=== PATIENT | female | born 1980 | race African-American/Black ===

== ENCOUNTER 2017-10-31 11:44 | Emergency (ER) | payer OTHER ==
[~2017-10-31] VITALS: Ht 157.5 cm; Wt 63.5 kg
[2017-10-31 12:17] VITALS: BP 132/88
[2017-10-31] MEDS ORDERED: PROPYLTHIOURACI50 M2 PO (12:22)
[2017-10-31] MEDS ORDERED: CORTISPORIN EAR10 ML LEFT EAR (12:22)
[2017-10-31] MEDS ORDERED: ATENOLOL50 MG ORAL (12:22)
--- NOTE | 2017-10-31 12:26 | Emergency Room Report ---
History of Present Illness General Chief Complaint: General Complaint Source: EMS Present Illness HPI 36 y/o female c/o multiple complaints. States she has left ear pain and been having bodyaches and chills. States that she is taking ibuprofen and benadryl with improvement of symptoms. Has no other physical complaints. Denies any current n/v/f/c/d, abd pain, back pain, neck pain, photophobia, phonophobia, CP , SOB or headache. Patient is also requesting refill of her PTU 25mg and Atenolol 50mg once daily for Hyperthyroidism that is well controlled. States she takes with good compliance w/o AE and with good control of sxs. Allergies: Coded Allergies: No Known Allergies (Unverified , 10/31/17) Patient History Past Medical History: see triage record Past Surgical History: none Pertinent Family History: none Now: No Immunizations: UTD Reviewed Nursing Documentation: PMH: Agreed; PSxH: Agreed Nursing Documentation-PMH Past Medical History: No History, Except For Hx Cardiac Problems: No - HYPERTHYROIDISIM Review of Systems All Other Systems: negative except mentioned in HPI Physical Exam Vital Signs Date Time Temp Pulse Resp B/P (MAP) Pulse Ox O2 Delivery O2 Flow Rate FiO2 10/31/17 12:07 98.2 101 20 132/88 99 Room Air 98.2 Sp02 EP Interpretation: reviewed, normal General Appearance: no apparent distress, alert, GCS 15, non-toxic Head: normocephalic, atraumatic Eyes: bilateral eye normal inspection, bilateral eye PERRL ENT: hearing grossly normal, normal pharynx, no angioedema, normal voice, uvula midline, nasal congestion, other - TMs pearly gonzalez with normal light reflex. Left EAC is erythematous and swollen. Neck: full range of motion, supple/symm/no masses Respiratory: chest non-tender, lungs clear, normal breath sounds, speaking full sentences Cardiovascular #1: regular rate, rhythm, no edema Musculoskeletal: back normal, gait/station normal, normal range of motion Neurologic: alert, oriented x3, responsive, sensory intact, speech normal Psychiatric: judgement/insight normal, memory normal, mood/affect normal, no suicidal/homicidal ideation Skin: normal color, no rash, warm/dry, well hydrated Medical Decision Making PA Attestation Dr. Sauceda my supervising physician with whom patient management has been discussed with. Diagnostic Impression: Primary Impression: Left otitis externa Additional Impressions: Viral URI Encounter for medication refill ER Course Pt. presents to the ED c/o of Ear Pain and flu-like sxs Ddx considered but are not limited to mastoiditis, bronchitis, pneumonia, viral upper respiratory tract infection, sinus pressure, AOM, AOE, headache, TMJ, Meningitis Vital signs: are WNL, pt. is afebrile H&PE are most consistent with viral upper respiratory tract infection with AOE ORDERS: none required at this time, the diagnosis is clinical ED INTERVENTIONS: None required at this time. DISCHARGE: At this time pt. is stable for d/c to home. Will provide printed patient care instructions, and any necessary prescriptions. Care plan and follow up instructions have been discussed with the patient prior to discharge. Last Vital Signs Date Time Temp Pulse Resp B/P (MAP) Pulse Ox O2 Delivery O2 Flow Rate FiO2 10/31/17 12:07 98.2 101 20 132/88 99 Room Air 98.2 Status: unchanged Disposition: HOME, SELF-CARE Condition: Stable Scripts Atenolol* (TENORMIN*) 50 Mg Tablet 50 MG ORAL DAILY for 30 Days, #30 TAB Prov: GRAYSON PITTSM P.A. 10/31/17 Propylthiouracil (PROPYLTHIOURACIL) 50 Mg Tablet 25 MG PO DAILY for 30 Days, #25 TAB Prov: GRAYSON PITTSM P.A. 10/31/17 Neomycin/Polymyxin B Sulf/Hc* (CORTISPORIN EAR SOLUTION*) 10 Ml Solution 4 DROP LEFT EAR QID, #10 ML 0 Refills Prov: UDAY PITTS. 10/31/17 Patient Instructions: Otitis Externa Additional Instructions: Take medication as directed. Return if symptoms change and worsen. Follow up with your PCP within the next 2-3 days for reevaluation. UDAY PITTS October 31, 2017 12:26
[2017-10-31 12:32] VITALS: BP 132/88
== END 2017-10-31 12:32 | disposition home or self-care (01) ==
LOC: EMR 12:23
DX: H60.92 Unspecified otitis externa, left ear (principal); J06.9 Acute upper respiratory infection, unspecified; B34.9 Viral infection, unspecified; Z76.0 Encounter for issue of repeat prescription; E05.90 Thyrotoxicosis, unspecified without thyrotoxic crisis or storm
CPT/HCPCS: 99284

== ENCOUNTER 2017-12-30 13:26 | Emergency (ER) | payer OTHER ==
[~2017-12-30] VITALS: Ht 157.5 cm; Wt 65.8 kg
[~2017-12-30 13:26] MED LIST: ATENOLOL50 MG ORAL; CORTISPORIN EAR10 ML LEFT EAR; PROPYLTHIOURACI50 M2 PO
[2017-12-30 14:00] VITALS: BP 189/113
[2017-12-30] MEDS ORDERED: Tetracaine 0.5% Opth 4ml Soln LEFT EYE ONE (14:00)
[2017-12-30] MEDS ORDERED: Fluorescein Strips LEFT EYE ONE (14:00)
[2017-12-30] MEDS ORDERED: Tetanus/Diptheria/Pertussis Vaccine 0.5ml Syr IM ONE (15:15)
--- NOTE | 2017-12-30 15:15 | Emergency Room Report ---
History of Present Illness General Chief Complaint: Eye Problems Source: Patient Present Illness HPI 37 YO Female presents to the ED c/o : Left eye pain, redness, scratching sensation and increased tearing x 2 day(s). Pt. reports accidentally poking her eye with her long artificial nails yesterday with acute onset of symptoms. reports some photophobia. denies contact lens use. Denies Loss of vision, Floaters, Flashing lights, or Diplopia/blurry vision. not sure about tetanus status more than 7 yrs ago. Allergies: Coded Allergies: No Known Allergies (Unverified , 10/31/17) Patient History Past Medical History: see triage record Past Surgical History: none Pertinent Family History: none Last Menstrual Period: 12/11/17 Now: No - TWINS : 3 Para: 3 Reviewed Nursing Documentation: PMH: Agreed; PSxH: Agreed Nursing Documentation-PMH Past Medical History: No History, Except For Hx Cardiac Problems: No - HYPERTHYROIDISIM Hx Hypertension: Yes Physical Exam Vital Signs Date Time Temp Pulse Resp B/P (MAP) Pulse Ox O2 Delivery O2 Flow Rate FiO2 12/30/17 13:42 98.1 84 18 189/113 97 Room Air 98.1 Sp02 EP Interpretation: reviewed, normal General Appearance: no apparent distress, alert, GCS 15, non-toxic Head: normocephalic, atraumatic Eyes: left eye fluoroscene uptake; bilateral eye normal inspection, bilateral eye PERRL, bilateral eye EOMI, bilateral eye visual acuity - 20/50 bilateral 20/ 40 left eye, bilateral eye other - Increase fluorescein uptake in a linear fashion in the 12 o clock position of the Left eye over the iris, there is no involvement of the pupil. Negative Jabier sign. ENT: hearing grossly normal, normal voice Neck: full range of motion Respiratory: chest non-tender, lungs clear, normal breath sounds, speaking full sentences Cardiovascular #1: regular rate, rhythm, no edema Gastrointestinal: normal bowel sounds, non tender, soft Rectal: deferred Genitourinary: normal inspection Musculoskeletal: back normal, gait/station normal, normal range of motion, non- tender Neurologic: alert, oriented x3, responsive, motor strength/tone normal, sensory intact, speech normal, grossly normal Psychiatric: judgement/insight normal Skin: normal color, no rash, warm/dry, well hydrated Lymphatic: no adenopathy Medical Decision Making PA Attestation Dr. silvestre is my supervising Physician whom patient management has been discussed with. Diagnostic Impression: Primary Impression: Corneal abrasion, left Qualified Codes: S05.02XA - Injury of conjunctiva and corneal abrasion without foreign body, left eye, initial encounter Additional Impression: Medication refill ER Course 37 YO Female presents to the ED c/o : Left eye pain, redness, scratching sensation and increased tearing x 2 day(s). Pt. reports accidentally poking her eye with her long artificial nails yesterday with acute onset of symptoms. reports some photophobia. denies contact lens use. Denies Loss of vision, Floaters, Flashing lights, or Diplopia/blurry vision. not sure about tetanus status more than 7 yrs ago. Ddx considered but are not limited to: corneal abrasion, acute glaucoma, globe rupture, FB, Corneal Ulcer, conjunctivitis. Iridis Vital signs: are WNL, pt. is afebrile H&PE are most consistent with: corneal abrasion ORDERS: -Tetracaine and Fluorescein Stain of the Left eye-Increase fluorescein uptake in a linear fashion in the 12 o clock position of the Left eye over the iris, there is no involvement of the pupil. Negative Jabier sign. Pt. had positive relief of pain with tetracaine drops. there was negative evidence of Fb, deep ulcer, or rupture. ED INTERVENTIONS: -Tdap IM Patient also requests refill for her hyperthyroid medication as well as blood pressure medication. DISCHARGE: At this time pt. is stable for d/c to home. Will provide printed patient care instructions, and any necessary prescriptions. Care plan and follow up instructions have been discussed with the patient prior to discharge. . Last Vital Signs Date Time Temp Pulse Resp B/P (MAP) Pulse Ox O2 Delivery O2 Flow Rate FiO2 12/30/17 14:00 98.1 84 18 189/113 97 Room Air 98.1 Disposition: HOME, SELF-CARE Condition: Stable Scripts Atenolol* (TENORMIN*) 50 Mg Tablet 50 MG ORAL DAILY, #30 TAB Prov: Carolynn Palmer 12/30/17 Propylthiouracil (Propylthiouracil) 50 Mg Tablet 25 MG PO DAILY, #30 TAB Prov: Carolynn Palmer 12/30/17 Acetaminophen* (TYLENOL EXTRA STRENGTH*) 500 Mg Tablet 500 MG ORAL Q6H PRN for Mild Pain/Temp > 100.5, #20 TAB 0 Refills Prov: Carolynn Palmer 12/30/17 Ciprofloxacin (Ciprofloxacin HCl) 2.5 Ml Drops 2 DROP LEFT EYE Q6H for 5 Days, #2.5 ML Prov: Carolynn Palmer 12/30/17 Referrals: Richar GÓMEZ,REFERRING (PCP) Patient Instructions: Corneal Abrasion Additional Instructions: Take medications as directed. Follow up with a Culinary Manager in 3 days, even if your symptoms have resolved. --Please review list of primary care clinics, if you do not already have a primary care provider Return sooner to ED if new symptoms occur, or current symptoms become worse. - Please note that this Emergency Department Report was dictated using [employer] technology software, occasionally this can lead to erroneous entry secondary to interpretation by the dictation equipment. Carolynn Palmer Dec 30, 2017 15:15
[2017-12-30] MEDS ORDERED: CILOXAN 0.3% O1 DROP LEFT EYE (15:18)
[2017-12-30] MEDS ORDERED: TYLENOL EXTRA500 MG ORAL (15:18)
[2017-12-30 15:47] VITALS: BP 169/92
[2017-12-30] MEDS ORDERED: ATENOLOL50 MG ORAL (15:54)
[2017-12-30] MEDS ORDERED: PROPYLTHIOURACI50 MG PO (15:54)
== END 2017-12-30 15:47 | disposition home or self-care (01) ==
LOC: EMR 14:45
DX: S05.02XA Injury of conjunctiva and corneal abrasion without foreign body, left eye, initial encounter (principal); W22.8XXA Striking against or struck by other objects, initial encounter; Y92.9 Unspecified place or not applicable; I10 Essential (primary) hypertension; E05.90 Thyrotoxicosis, unspecified without thyrotoxic crisis or storm; Z76.0 Encounter for issue of repeat prescription
CPT/HCPCS: 99284

== ENCOUNTER 2019-05-27 16:54 | Emergency (ER) | payer OTHER ==
[~2019-05-27] VITALS: Ht 157.5 cm; Wt 66.7 kg
[~2019-05-27 16:54] MED LIST changes: +CILOXAN 0.3% O1 DROP LEFT EYE; +PROPYLTHIOURACI50 MG PO; +TYLENOL EXTRA500 MG ORAL
[2019-05-27 17:05] VITALS: BP 150/89
--- NOTE | 2019-05-27 17:05 | NUR ---
ED Nurse Note: Pt ambulated to the ED with the c/o of laceration on the right hand. Upon assessment pt verbalized "I was trying to cover my face while a candle just got broken." Placed on bed.
--- NOTE | 2019-05-27 17:21 | NUR ---
ED Nurse Note: X-ray done.
[2019-05-27] MEDS ORDERED: Tetanus/Diptheria/Pertussis IM ONE (17:30)
--- NOTE | 2019-05-27 17:30 | NUR ---
ED Nurse Note: TDAP given at left deltoid.
--- NOTE | 2019-05-27 18:06 | Emergency Room Report ---
History of Present Illness General Chief Complaint: Laceration Source: Patient Present Illness HPI 38-year-old female with history of hyperthyroidism and hypertension currently controlled here due to a laceration on right wrist. Patient reports that she was picking up a candle from the top shelf in the bathroom as a candle fell on her right hand and the glass portion of the candle broke and gave her a cut the right palmar side of wrist. Patient has full range of motion, no motor or sensory deficits noted. Patient is requesting a tetanus shot as she reports that she is not up-to-date. Denies all other injuries, chest pain, shortness of breath, palpitation, no other associated symptoms. No ecchymosis noted at site of injury. Allergies: Coded Allergies: No Known Allergies (Unverified , 10/31/17) Patient History Past Medical History: see triage record Past Surgical History: unable to obtain Pertinent Family History: none Now: No Immunizations: other - Tdap given today Reviewed Nursing Documentation: PMH: Agreed; PSxH: Agreed Nursing Documentation-PMH Past Medical History: No History, Except For Hx Cardiac Problems: No - HYPERTHYROIDISIM Hx Hypertension: Yes Review of Systems All Other Systems: negative except mentioned in HPI Physical Exam Vital Signs Date Time Temp Pulse Resp B/P (MAP) Pulse Ox O2 Delivery O2 Flow Rate FiO2 05/27/19 17:03 98.4 100 16 154/90 (111) 99 Room Air Sp02 EP Interpretation: reviewed, normal General Appearance: no apparent distress, alert, GCS 15, non-toxic Head: normocephalic, atraumatic Eyes: bilateral eye normal inspection, bilateral eye PERRL ENT: hearing grossly normal, normal pharynx, no angioedema, normal voice Neck: full range of motion, supple/symm/no masses Respiratory: chest non-tender, lungs clear, normal breath sounds, no rhonchi, no wheezing, speaking full sentences Cardiovascular #1: regular rate, rhythm, no edema, no murmur, normal capillary refill Cardiovascular #2: 2+ radial (R), 2+ radial (L) Gastrointestinal: normal bowel sounds, non tender, soft, non-distended, no guarding, no rebound Rectal: deferred Genitourinary: normal inspection, no CVA tenderness Musculoskeletal: back normal, non-tender, other - laceration right wrist Neurologic: alert, motor strength/tone normal, oriented x3, sensory intact, responsive, speech normal Psychiatric: judgement/insight normal, memory normal, mood/affect normal, no suicidal/homicidal ideation Skin: laceration - superficial palmar side of right wrist Lymphatic: no adenopathy Procedures Laceration/Wound Repair Laceration/Wound Repair : Consent: Verbal Wound Location: upper extremity - wrist Wound's Depth, Shape: superficial Wound Length (cm): 1 Wound Explored: clean Irrigated w/ Saline (ccs): 10 Betadine Prep?: Yes Anesthesia: Lidocaine w/ Epi Volume Anesthetic (ccs): 5 Wound Repaired With: sutures Suture Size/Type: 5:0 Number of Sutures: 5 Layer Closure?: Yes Sterile Dressing Applied?: Yes Splint Applied?: No Sling Applied?: No Patient Tolerated: Well Complications: None Medical Decision Making PA Attestation All my diagnosis and treatment plans were reviewed ad discussed with my supervising physician Dr. Liang Diagnostic Impression: Primary Impression: Laceration of wrist Additional Impression: Contusion, hand ER Course 38-year-old female with history of hyperthyroidism and hypertension currently controlled here due to a laceration on right wrist. Patient reports that she was picking up a candle from the top shelf in the bathroom as a candle fell on her right hand and the glass portion of the candle broke and gave her a cut the right palmar side of wrist. Patient has full range of motion, no motor or sensory deficits noted. Patient is requesting a tetanus shot as she reports that she is not up-to-date. Denies all other injuries, chest pain, shortness of breath, palpitation, no other associated symptoms. No ecchymosis noted at site of injury. Ddx considered but are not limited to : Superficial laceration, deep laceration , tendon involvement with laceration, laceration with foreign body, and contusion versus fracture versus sprain Vital signs: are WNL, pt. is afebrile H&PE are most consistent with: Superficial laceration of right wrist, contusion of right hand ORDERS: Right wrist x-ray, Bactroban, ibuprofen ED INTERVENTIONS: Tdap, wound closure DISCHARGE: At this time pt. is stable for d/c to home. Will provide printed patient care instructions, and any necessary prescriptions. Care plan and follow up instructions have been discussed with the patient prior to discharge. Sutures to be removed in 7 to 10 days, followed up, worsening symptoms return to the emergency room Other X-Ray Diagnostic Results Other X-Ray Diagnostic Results : X-Ray ordered: wrist # of Views/Limited Vs Complete: 3 View Indication: Pain EP Interpretation: Yes PA Xray: Interpretation reviewed, by supervising MD, and agrees with findings. Interpretation: no dislocation, no soft tissue swelling, no fractures, other - no fb Impression: No acute disease Electronically Signed by: Evin THOMAS Scribe Text I evaluated the Xray with my supervising physician Dr. Liang and agreed on no fracture Last Vital Signs Date Time Temp Pulse Resp B/P (MAP) Pulse Ox O2 Delivery O2 Flow Rate FiO2 05/27/19 17:05 98.4 88 16 150/89 99 Room Air Disposition: HOME, SELF-CARE Condition: Stable Scripts Ibuprofen (Ibu) 800 Mg Tablet 800 MG PO BID, #20 TAB Prov: Evin Mei 05/27/19 Mupirocin (MUPIROCIN) 15 Gm Cream..g. 1 APPLIC TOPIC THREE TIMES A DAY, #15 GM Prov: Evin Mei 05/27/19 Referrals: Richar GÓMEZ,REFERRING (PCP) Patient Instructions: Contusion, [id number], Laceration Care, Adult Additional Instructions: Take medication as directed, follow-up with your primary care provider, sutures to be removed in 7 to 10 days. If worsening symptoms return to emergency room Evin Mei May 27, 2019 18:06
[2019-05-27] MEDS ORDERED: MUPIROCIN15 GM TOPIC (18:07)
[2019-05-27] MEDS ORDERED: IBU800 MG PO (18:07)
[2019-05-27 18:21] VITALS: BP 130/85
--- NOTE | 2019-05-27 18:23 | NUR ---
ER DISCHARGE NOTE: Patient is cleared to be discharged per ERMD, pt is aox4, on room air, with stable vital signs. pt was given dc and prescription instructions, pt was able to verbalize understanding, pt id band removed without complications. pt is able to ambulate with steady gait. pt took all belongings.
--- NOTE | 2019-05-28 12:40 | Diagnostic Imaging Report ---
Indication: Right wrist pain COMPARISON: None Findings: 3 views of the right wrist were obtained. No acute fractures, malalignment, erosions or periostitis are identified. Soft tissues are unremarkable. Impression: No acute findings.
== END 2019-05-27 18:21 | disposition home or self-care (01) ==
LOC: EMR 17:44
DX: S61.511A Laceration without foreign body of right wrist, initial encounter (principal); S60.221A Contusion of right hand, initial encounter; W45.8XXA Other foreign body or object entering through skin, initial encounter; Y92.9 Unspecified place or not applicable; I10 Essential (primary) hypertension; E05.90 Thyrotoxicosis, unspecified without thyrotoxic crisis or storm; Z23 Encounter for immunization
CPT/HCPCS: 90471; 90715; 99283